=== PATIENT | female | born 1960 | race Caucasian/White ===

== ENCOUNTER 2019-12-09 09:19 | Observation (INO) ==
[2019-12-09] MEDS ORDERED: ASPIRIN PO ONE (10:08)
[2019-12-09] MEDS ORDERED: NITROGLYCERIN TOP ONE (10:09)
[2019-12-09 10:23] LABS: BASO# 0.02 X1000 (0.0-0.2); BASO% 0.6 % (0.0-0.8); EOS# 0.05 X1000 (0.0-0.7); EOS% 1.5 % (0.0-10.0); HEMATOCRIT 40.6 % (37.0-47.0); HEMOGLOBIN 13.8 g/dL (12.0-16.0); LYMPH% 51.2 % (20.5-51.1); MCH 30.5 PG (27-31); MCV 89.8 FL (81-99); MONO# 0.39 X1000 (0.11-0.59); MONO% 11.7 % (1.7-9.3); MPV 10.3 FL (7.4-10.4); NEUT# 1.16 X1000 (1.4-6.5); PLT 150 X1000 (130-400); RBC 4.52 XMIL (4.2-5.4); WBC 3.32 X1000 (4.8-10.8)
[2019-12-09 10:29] LABS: INR 0.88
[2019-12-09 10:30] LABS: PTT 25.1 Seconds (22.3-41.8)
--- NOTE | 2019-12-09 10:35 | Diag Imaging Result Doc PS360 ---
EXAM: CHEST-2 VIEWS HISTORY: CP TECHNIQUE: Two views COMPARISON: 05/03/2016 FINDINGS: The lungs are well expanded. The heart is not enlarged. The vessels are not distended. There are no infiltrates. No pleural effusions. Mild scoliosis. IMPRESSION: No acute abnormality. Electronically signed by Rell Matthews 12/09/2019 10:33 AM
--- NOTE | 2019-12-09 11:07 | EKG Report ---
Test Performed on : 12/09/2019 09:24:50 AM Test Reason : cp/palpitations Blood Pressure : / mmHG Vent. Rate : 071 BPM Atrial Rate : 071 BPM P-R Int : 146 ms QRS Dur : 070 ms QT Int : 380 ms P-R-T Axes : 020 053 059 degrees QTc Int : 412 ms Normal sinus rhythm. Normal ECG No previous ECGs available Unconfirmed Result
[2019-12-09 11:27] LABS: BUN 13 mg/dL (8-22); CALCIUM 9.3 mg/dL (8.8-10.2); GLUCOSE 93 mg/dL (70-104); TCO2 26 mmol/L (25-35); TOTAL BILIRUBIN 0.35 mg/dL (0.20-1.00)
[2019-12-09 11:41] LABS: ALBUMIN 3.8 g/dL (3.5-5.0); CHLORIDE 96 mmol/L (98-107); CREATININE 0.7 mg/dL (0.5-0.9); ESTIMATED GFR > 60; POTASSIUM 4.4 mmol/L (3.5-5.1); SODIUM 136 mmol/L (136-145)
[2019-12-09 11:48] LABS: AGAP 14
[2019-12-09 11:49] LABS: ALB/GLOB RATIO 1.2; COSMO 272
[2019-12-09 11:51] LABS: CK PROFILE 138 U/L (24-173)
[2019-12-09 12:02] LABS: ALKALINE PHOSPHATASE 73 U/L (32-104); GOT 34 U/L (10-30); GPT 25 U/L (10-36)
--- NOTE | 2019-12-09 12:31 | PROVIDER DOCUMENTATION ---
This chart was entered by Columba Wong Scribe, acting as scribe for Scott Haas MD. HPI-Cardiac General - General Chief Complaint: Palpitations Stated Complaint: CHEST PAIN Time Seen by Provider: 12/09/19 09:57 Source: patient Allergies/Adverse Reactions: Patient Allergies Allergy/AdvReac Type Severity Reaction Status Date / Time No Known Allergies Allergy Verified 12/09/19 10:20 Home Medications: Home Medication List Medication Instructions Recorded Confirmed Last Taken Type Amlodipine Besylate 1 tab PO QHS 12/09/19 12/09/19 12/08/19 History Telmisartan 1 tab PO QAM 12/09/19 12/09/19 12/09/19 History - History of Present Illness-Cardiac Nature of Presenting Problem: Patient is a 59 y/o female presenting to the ED today c/o chest pain and palpitations. Patient reports onset of symptoms intermittently approximately 4 months ago with worsening since onset. 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 Patient states episodes last a few minutes then resolve with rest. Patient states palpitations are painful and that it "feels like her heart is exploding" out of her anterior chest wall. Patient reports she has seen a medicare nurse in the past and was diagnosed with mitral valve pro lapse. Patient denies diaphoresis, N/V, or radiation of pain. Patient denies all other signs/symptoms. Location: reports: central Quality of Pain: reports: other ("exploding") Onset/Duration: other (4 months) Timing: intermittent, getting worse Context/Activities at Onset: reports: moderate activity Modifying Factors: improves with: rest. worse with: exercise Palpitation Quality: fast/pounding heart beat History of arrythmia: reports: other (mitral valve prolapse) Nitro Today/Relief: reports: no nitro taken today Aspirin Treatment Today: reports: no aspirin today Prior Chest Pain/Cardiac Workup: reports: other (prior cardiology workup) Associated Symptoms: reports: shortness of breath. denies: diaphoresis, fever/chills, nausea, vomiting Similar Symptoms Previously?: No Recently Seen Here or By Another Healthcare Provider: No Review of Systems - Adult - REVIEW OF SYSTEMS - ADULT Constitutional: denies: chills, fever Eyes: reports: no symptoms reported Ears, Nose, Mouth & Throat: reports: no symptoms reported Cardiovascular: reports: chest pain, palpitations Respiratory: reports: shortness of breath. denies: cough Gastrointestinal: denies: abdominal pain, diarrhea, nausea, vomiting Genitourinary: reports: no symptoms reported Musculoskeletal: reports: no symptoms reported Integumentary: reports: no symptoms reported Neurological: reports: no symptoms reported Psychiatric: reports: no symptoms reported Endocrine: reports: no symptoms reported Hematologic/Lymphatic: reports: no symptoms reported Allergic/Immunologic: reports: no symptoms reported All Other Systems: Reviewed and Negative Past History - Adult - PAST MEDICAL HISTORY-ADULT Review of Records: reports: Old Records Reviewed, Nursing Assessment Review, Medications Reviewed, Social history reviewed & non-contributory. Major Childhood Illnesses: reports: denies history Cardiovascular: reports: heart valve problem (mitral valve prolapse) Respiratory: reports: denies history Gastrointestinal: reports: denies history Obstetrical/Gynecological: reports: denies history Genitourinary: reports: denies history Musculoskeletal: reports: denies history Neurological: reports: denies history Psychiatric: reports: denies history Endocrine/Immune: reports: denies history Other Conditions: reports: denies history Physical Exam-General - PHYSICAL EXAM-ADULT Initial Vital Signs Reviewed: Yes - CONSTITUTIONAL General Appearance: appears well, alert, no apparent distress - EYES Eyes: PERRL/EOMI, pink conjunctivae - HEAD, EARS, NOSE, MOUTH & THROAT HENMT: normocephalic/atraumatic, moist mucous membranes - NECK Neck: full range of motion, normal inspection - RESPIRATORY Respiratory: lungs clear, normal breath sounds, no respiratory distress, no accessory muscle use - CARDIOVASCULAR Cardiovascular: regular rate, rhythm, no edema - GASTROINTESTINAL (ABDOMEN) Abdominal Exam: non tender, soft - LYMPHATIC Lymphatic: no adenopathy - MUSCULOSKELETAL Back Exam: normal inspection Extremity: normal range of motion, normal gait, normal inspection - SKIN Integumentary: normal color, normal turgor, warm/dry - NEUROLOGIC Neurologic: grossly normal, no motor/sensory deficits - PSYCHIATRIC Psych/Mental Status: normal mood/affect, normal thought content, normal thought process - HEART Score HEART Score: History: Highly Suspicious HEART Score: ECG: Normal HEART Score: Age: 45-65 Years HEART Score: Risk Factors for Atherosclerotic Disease: 1 or 2 Risk Factors HEART Score: Troponin: < or = Normal Limit Total HEART Score:: 4 Progress - PLAN OF CARE/RESULTS Progress/Plan/Lab Results: Vital Signs - 8 hr 12/09/19 09:32 12/09/19 10:14 12/09/19 10:52 Temperature 98.2 F 97.9 F Pulse Rate 72 65 67 Respiratory Rate 18 16 17 Blood Pressure 119/80 145/90 137/89 O2 Sat by Pulse Oximetry 99 98 96 Laboratory Results - last 24 hr 12/09/19 12/09/19 12/09/19 10:10 10:10 10:10 WBC 3.32 L RBC 4.52 Hgb 13.8 Hct 40.6 MCV 89.8 MCH 30.5 MCHC 34.0 RDW Std Deviation 12.0 Plt Count 150 MPV 10.3 Immature Gran % (Auto) 0.0 Neut % (Auto) 35.0 L Lymph % (Auto) 51.2 H [place] % (Auto) 11.7 H Eos % (Auto) 1.5 Baso % (Auto) 0.6 Immature Gran # (Auto) 0.00 Neut # (Auto) 1.16 L Lymph # (Auto) 1.70 [place] # (Auto) 0.39 Eos # (Auto) 0.05 Baso # (Auto) 0.02 PT INR PTT (Actin FS) Sodium 136 Potassium 4.4 Chloride 96 L Carbon Dioxide 26 Anion Gap 14 BUN 13 Creatinine 0.7 Estimated GFR/1.73 m2 > 60 BUN/Creatinine Ratio 19 Glucose 93 Calculated Osmolality 272 Calcium 9.3 Total Bilirubin 0.35 AST 34 H ALT 25 Alkaline Phosphatase 73 Creatine Kinase 138 Troponin T High Sens Els-W-[id number] Pept 40 Total Protein 7.0 Albumin 3.8 Globulin 3.2 Albumin/Globulin Ratio 1.2 12/09/19 12/09/19 10:10 10:10 WBC RBC Hgb Hct MCV MCH MCHC RDW Std Deviation Plt Count MPV Immature Gran % (Auto) Neut % (Auto) Lymph % (Auto) [place] % (Auto) Eos % (Auto) Baso % (Auto) Immature Gran # (Auto) Neut # (Auto) Lymph # (Auto) [place] # (Auto) Eos # (Auto) Baso # (Auto) PT 12.0 INR 0.88 PTT (Actin FS) 25.1 Sodium Potassium Chloride Carbon Dioxide Anion Gap BUN Creatinine Estimated GFR/1.73 m2 BUN/Creatinine Ratio Glucose Calculated Osmolality Calcium Total Bilirubin AST ALT Alkaline Phosphatase Creatine Kinase Troponin T High Sens 8 Rso-Z-Vjvxvfcipbv Pept Total Protein Albumin Globulin Albumin/Globulin Ratio Orders Category Date Time Status Cardiac Monitoring DIRECTED Care 12/09/19 10:08 Active Nursing- Obtain EKG once Care 12/09/19 12:14 Active Oxygen Therapy- ED Nursing DIRECTED Care 12/09/19 10:08 Active Saline Loc NOW Care 12/09/19 10:08 Active CHEST-2 VIEWS [RAD] Stat Exams 12/09/19 10:08 Completed CBC WITH ELECTRONIC DIFF [HEME] Stat Lab 12/09/19 10:10 Completed CK PROFILE [SP CHEM] Stat Lab 12/09/19 10:10 Completed COMPREHENSIVE METABOLIC PANEL [CHEM] Stat Lab 12/09/19 10:10 Completed PRO B-NATRIURETIC PEPTIDE Stat Lab 12/09/19 10:10 Completed PROTIME WITH INR [COAG] Stat Lab 12/09/19 10:10 Completed PTT [COAG] Stat Lab 12/09/19 10:10 Completed TROPONIN T HIGH SENSITIVITY Stat Lab 12/09/19 10:10 Completed TROPONIN T HIGH SENSITIVITY Stat Lab 12/09/19 12:26 Ordered Aspirin Med 12/09/19 10:08 Discontinued 325 mg PO NOW ONE Nitroglycerin Med 12/09/19 10:09 Discontinued 0.5 inch TOP NOW ONE CP/SOB/Palp >45 yrs of Age Stat Oth 12/09/19 10:08 Ordered EKG [EKG] Stat Ther 12/09/19 10:08 Draft EKG [EKG] Stat Ther 12/09/19 12:14 Ordered Result Diagrams: 12/09/19 10:10 12/09/19 10:10 - EKG 1 Time of EKG reading by physician:: 09:40 EKG Read and Signed by:: Scott Haas EKG Interpretation (*Must complete 3 of following elements*): Normal Rate: 71 Rhythm: Normal sinus rhythm - XRAY 1 XRAY Study: Chest Impression: See EMR Report (EXAM: CHEST-2 VIEWS HISTORY: CP TECHNIQUE: Two views COMPARISON: 05/03/2016 FINDINGS: The lungs are well expanded. The heart is not enlarged. The vessels are not distended. There are no infiltrates. No pleural effusions. Mild scoliosis. IMPRESSION: No acute abnormality. Electronically signed by Rell Matthews 12/09/2019 10:33 AM 12/09/19 1033 Int erpreting Physician: Rell Matthews MD Dictated Date/Time: 12/09/19 1032 cc: Scott Haas MD; Jj Torrez MD) - CONSULTS/PCP/HOSPITALIST Notification #1 *Consult/PCP/Hospitalist*: Marilee paged [phone] #2 Consult: asmita Thibodeaux, paged [phone] Time Discussed: 12:31 Reason/Comments: Admit to [place] Consult Disposition: Will see in ED, Admit Departure - Departure Date of Disposition Decision: 12/09/19 Time of Disposition Decision: 12:31 DIAGNOSIS: Unstable angina pectoris, Heart palpitations Disposition: ADMITTED INPATIENT 09 Certified Medical Emergency: Emergent Condition: Fair Referrals and Follow-Ups: Jj Torrez MD [Primary Care Provider] - - Critical Care Note This patient required my direct & personal management of CC.: No Attestation - Physician/ FRANCO Attestation Patient care was provided by Advanced Practice Provider:: No The physician spent face to face time with patient:: Yes Advanced Practice Provider documentation review:: Supervising physician onsite and consulted in the evaluation and care of this patient. The physician did have a face to face encounter with the patient. This chart was documented by the indicated scribe, (Columba Wong, Charlene) and accurately reflects the services I performed and decisions made by me, Scott Haas MD, as attested by the provider's signature.
--- NOTE | 2019-12-09 13:02 | ED EKG INTERP ---
EKG Interpretation - EKG Time of EKG reading by physician:: 13:02 EKG Read and Signed by:: Scott Haas EKG Interpretation (*Must complete 3 of following elements*): Abnormal Rate: 65 Rhythm: NSR [place]: normal QRS: poor R wave progression, other (left atrial enlargement) ST Wave: non-specific ST changes Prior EKG Comparison: unchanged from prior Attestation - Physician/ FRANCO Attestation Patient care was provided by Advanced Practice Provider:: No The physician spent face to face time with patient:: Yes Advanced Practice Provider documentation review:: Supervising physician onsite and consulted in the evaluation and care of this patient. The physician did have a face to face encounter with the patient.
--- NOTE | 2019-12-09 13:02 | EKG Report ---
Test Performed on : 12/09/2019 1:00:52 PM Test Reason : this is a repeat Blood Pressure : / mmHG Vent. Rate : 065 BPM Atrial Rate : 065 BPM P-R Int : 186 ms QRS Dur : 080 ms QT Int : 396 ms P-R-T Axes : 054 049 048 degrees QTc Int : 411 ms Normal sinus rhythm. Possible Left atrial enlargement Borderline ECG When compared with ECG of 09-DEC-2019 09:24, (Unconfirmed) No significant change was found Unconfirmed Result
[2019-12-09] MEDS ORDERED: NITROGLYCERIN SL PRN (13:44)
[2019-12-09] MEDS ORDERED: TYLENOL PO PRN (13:44)
[2019-12-09] MEDS ORDERED: ZOFRAN IV PRN (13:44)
--- NOTE | 2019-12-09 15:46 | ECHO REPORT ---
ORDER DATE: 12/09/2019 INTERPRETING PHYSICIAN: Dr. Garrett Earl ECHOCARDIOGRAPHIC MEASUREMENTS: 1. Interventricular septum: 0.5 cm. 2. Left ventricular posterior wall: 0.6 cm. 3. Diastolic diameter: 4.1 cm. 4. Left atrium: 2.7 cm. 5. Aortic root: 2.5 cm. SUMMARY OF THE 2-DIMENSIONAL IMAGIN. Aortic valve leaflets are trileaflet. 2. Pulmonic valve was normal. 3. Tricuspid valve was normal. 4. Mitral valve was normal. 5. Normal left ventricular cavity size. Estimated ejection fraction of 65%. 6. There is mild mitral regurgitation. 7. Mild tricuspid regurgitation. Peak velocity across the tricuspid valve less than 2 m/sec. 8. Peak velocity across the aortic valve less than 2 m/sec. There is no aortic stenosis or regurgitation. 9. Peak velocity across the tricuspid valve was 2 m/sec. 10. There is no pericardial effusion. 11. No obvious intracardiac mass or thrombus seen. 12. There is grade 1 diastolic dysfunction. cc: Garrett Earl MD
--- NOTE | 2019-12-09 19:09 | HISTORY AND PHYSICAL ---
PRIMARY CARE PROVIDER: Dr. Torrez. MAP MAKER: Dr. Hunt. CHIEF COMPLAINT: Chest pain and palpitations. HISTORY OF PRESENT ILLNESS: Ms. Martel is a 59-year-old female who carries a past medical history of hypertension, possibly mitral valve prolapse, who reports off and on for the last few months she has had some episodes of feeling like some fluid moving in her heart and feeling a bee sting and then it is gone. Sometimes it is associated with belching. She has noticed this at rest and as well with exertion. She has noticed over the past week or so after she has had an upper respiratory infection that it has exacerbated. 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 She has to stop and catch her breath. She is a very active person. She goes hiking, has done so for about 5 years. She goes to the gym 3 to 4 times a week. She does the step mill as well as other things at the gym. She will notice that her heart rate gets up, but then she just thought that was normal. Again, she was worried because of the exacerbation with her recently being sick. Workup in the ED has showed 2- troponins. Her initial EKG just shows a normal sinus rhythm. We will consult her instructor decorating, Dr. Hunt. We sent her for an echocardiogram. We will make her n.p.o. after midnight and do a stress test in the a.m. PAST MEDICAL HISTORY: Per HPI. PAST SURGICAL HISTORY: , partial hysterectomy. SOCIAL HISTORY: She is . She has children. She lives a very active lifestyle. 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 No alcohol, tobacco, or illicit drug use. FAMILY HISTORY: Mother does have a fast heart rate condition. She does not know the name of it, but she does have to take medications for it. Father had some type of cancer that was cured. He also has Alzheimer's. ALLERGIES: No known drug allergies. MEDICATIONS: Home medications are being compiled. PHYSICAL EXAMINATION: VITAL SIGNS: Temperature is 97.8 degrees, heart rate at 96, respirations 18, blood pressure 127/76, O2 is 96% on room air. GENERAL: Ms. Martel is a pleasant 59-year-old female who is lying in the bed in no acute distress. HEENT: Atraumatic, normocephalic. PERRL. NECK: Supple. Trachea midline. CARDIOVASCULAR: S1, S2 appreciated. No murmurs, gallops, rubs noted. RESPIRATORY: Lung sounds clear bilaterally. GI: Is soft, nontender, nondistended. Positive bowel sounds 4 quads. EXTREMITIES: Lower extremities negative for edema. NEUROLOGIC: No focal deficits noted. DIAGNOSTIC DATA: Initial EKG normal sinus rhythm at 71 beats per minute. Chest x-ray: No acute abnormality. Echocardiogram is pending. PERTINENT LABORATORY DATA: Two sets of troponins have been negative at 8 and 6. ASSESSMENT AND PLAN: 1. Atypical chest pain. Two sets of cardiac enzymes have been negative. She has undergone an echocardiogram. We will set her up for a stress test in the a.m., consult her instructor decorating, do a follow-up electrocardiogram in the a.m., continue with full-dose aspirin. She just recently had a lipid profile done with hospital screening. 2. Hypertension. We will continue on home medications when reconciled. 3. Further recommendations to follow physician evaluation, laboratory and diagnostic data. Dictated by RADHA Blair for Lissy Barr MD cc: MD Delmar Harman MD MTDD
[2019-12-09] MEDS ORDERED: NORVASC PO SCH (21:00)
[2019-12-09] MEDS ORDERED: AMLODIPINE BESYLATE PO SCH (21:00)
[2019-12-10] MEDS ORDERED: PRILOSEC PO SCH (07:00)
--- NOTE | 2019-12-10 07:40 | EKG Report ---
Test Performed on : 12/10/2019 07:27:28 AM Test Reason : CP Blood Pressure : / mmHG Vent. Rate : 063 BPM Atrial Rate : 063 BPM P-R Int : 180 ms QRS Dur : 078 ms QT Int : 394 ms P-R-T Axes : 002 043 042 degrees QTc Int : 403 ms Normal sinus rhythm. Normal ECG When compared with ECG of 09-DEC-2019 13:00, (Unconfirmed) No significant change was found Confirmed by Omero Martel MD ([id number]) on 12/10/2019 8:11:28 AM
[2019-12-10 08:49] LABS: AGAP 10; BUN 15 mg/dL (8-22); CALCIUM 8.9 mg/dL (8.8-10.2); CHLORIDE 100 mmol/L (98-107); CHOLESTEROL 151 mg/dL (0-200); COSMO 276; CREATININE 0.8 mg/dL (0.5-0.9); ESTIMATED GFR > 60; GLUCOSE 97 mg/dL (70-104); HDL 43 mg/dL (45-65); LDL 85 mg/dL; POTASSIUM 4.4 mmol/L (3.5-5.1); SODIUM 138 mmol/L (136-145); TCO2 28 mmol/L (25-35); TRIGLYCERIDES 117 mg/dL (35-135); VLDL 23 mg/dL
[2019-12-10 08:50] LABS: BASO# 0.03 X1000 (0.0-0.2); EOS# 0.06 X1000 (0.0-0.7); EOS% 1.9 % (0.0-10.0); HEMATOCRIT 41.2 % (37.0-47.0); LYMPH# 1.49 X1000 (1.2-3.4); LYMPH% 48.1 % (20.5-51.1); MCH 30.9 PG (27-31); MCV 90.9 FL (81-99); MONO# 0.32 X1000 (0.11-0.59); MONO% 10.3 % (1.7-9.3); MPV 10.3 FL (7.4-10.4); NEUT% 38.7 % (42.2-75.2); PLT 179 X1000 (130-400); RBC 4.53 XMIL (4.2-5.4); RDW 12.1 % (11.5-14.5)
[2019-12-10] MEDS ORDERED: MICARDIS PO SCH ×2 (09:00)
[2019-12-10] MEDS ORDERED: ASPIRIN PO SCH ×2 (09:00)
--- NOTE | 2019-12-10 15:39 | Diag Imaging Result Document ---
PROCEDURE NAME: MYOCARDIAL PERF SCAN, STR/REST - 12/10/2019 SUMMARY: The patient was administered 10.5 mCi of technetium-99m sestamibi, after which resting cardiac images were obtained. The patient was subsequently exercised on a treadmill according to a Daniel protocol and exercised for a total of 8 minutes, achieving a maximum workload of stage III and 10.1 METS. With exercise, the heart rate increased from 68 beats per minute to 148 beats per minute, representing 92% of maximal age predicted heart rate. The blood pressure increased from 147/75 to 152/85. With exercise, the patient denied chest discomfort. At peak exercise, the patient was administered 33.8 mCi of technetium 99-m sestamibi after which gated stress cardiac images were obtained. Baseline ECG demonstrated normal sinus rhythm and was within normal limits. With exercise, there were no diagnostic ST-segment changes. SPECT images were reconstructed in the short, horizontal long, and vertical long axis. Review of these images demonstrated homogeneous uptake of radiopharmaceutical on both stress and resting images. Gated images demonstrate a calculated left ventricular ejection fraction of 78% with symmetrical wall motion/thickening. CONCLUSIONS: 1. Good aerobic capacity. Target heart rate achieved. 2. Clinically negative for chest pain. 3. Electrocardiographically negative for exercise-induced myocardial ischemia. 4. Normal exercise sestamibi images. cc: MD Lissy Espinoza MD
[2019-12-10 16:07] VITALS: BP 134/78
[2019-12-10] MEDS ORDERED: MYLICON PO ONE (16:34)
--- NOTE | 2019-12-10 21:09 | CARDIOLOGY CONSULTATION ---
DATE: 12/10/2019 INDICATION: Chest pain, palpitations. HISTORY OF PRESENT ILLNESS: Ms. Martel is a 59-year-old, white female, with a history of hypertension, who presented for evaluation of chest pain and shortness of breath. She has noted over the last couple of weeks or so, that she would be increasingly short of breath on her workouts as well as hiking. In addition, at times she would have some heaviness in her chest that she would notice particularly when she was pushing things. She is very at active. 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 She works out with weights. She has not had any significant cardiac history. PAST MEDICAL HISTORY: Significant for hypertension. SOCIAL HISTORY: She is . No current tobacco use. FAMILY HISTORY: Significant for mother has some sort of fast heart rate that she does not know the exact name for. Father had some type of cancer as well as Alzheimer's. REVIEW OF SYSTEMS: A 10-system review of systems is negative, except for those things mentioned in HPI. PHYSICAL EXAMINATION: Afebrile. Heart rate 71, blood pressure 134/78.General: She is in no acute distress. HEENT: Oropharynx is moist. Normal dentition. Eye examination, pink conjunctivae, white sclerae. Neck: No obvious thyromegaly or thyroid tenderness. Cardiovascular: She sounds to be in a regular rate and rhythm. She has no obvious murmurs. She has no S3. She has no lower extremity edema. Chest: Clear bilaterally. She has no increased work of breathing. Abdomen: Soft, nontender, nondistended. She has no obvious organomegaly. Skin: Warm and dry throughout without any rashes. Neurological: Moving all extremities well. She has no lateralizing deficits. PERTINENT DATA: Her echo was unremarkable with an ejection fraction of 65%. She had a nuclear scan that was normal as well, showing normal perfusion and an ejection fraction of 78%. Her lab data demonstrates a white count of 3.1, hematocrit 41, platelet count is 179,000. Her sodium is 138, potassium is 4.4, BUN 15, creatinine 0.8. Cardiac enzymes are negative. Her LDL is 85. ASSESSMENT: Ms. Martel is a 59-year-old female who presented with atypical chest discomfort and predominantly shortness of breath. She had a normal nuclear scan. PLAN: Her EKG on presentation was unremarkable. Her echocardiogram was unremarkable. Her laboratory tests have been unremarkable and the remainder of her EKGs here in the hospital have not shown any ischemia. From my standpoint, she can be discharged. We will plan on arranging for an outpatient TIMBO to evaluate her palpitations. Otherwise, please contact us if we can be of further assistance. cc: Miky Capellan MD
--- NOTE | 2019-12-11 15:53 | DISCHARGE SUMMARY ---
ADMISSION DATE: 12/09/2019 DISCHARGE DATE: 12/10/2019 DISCHARGE DISPOSITION: Home. DISCHARGE CONDITION: Hemodynamically stable. Her echocardiogram, stress test have been negative. DISCHARGE DIAGNOSIS: Atypical chest discomfort. 2. Essential hypertension. OTHER DIAGNOSIS: History of essential hypertension. DISCHARGE MEDICATIONS: Amlodipine 2.5 mg at nighttime, telmisartan 40 mg in the morning time. VITALS: At time of discharge temperature 97.7 degrees, pulse 71, respiratory 18, blood pressure 134/78, saturating 94% room air. PHYSICAL EXAMINATION: Not in acute distress. Oral cavity is moist. Lungs: Air entry bilaterally equal. No wheeze or crackles. S1 normal. No murmur, gallop, or rub. Abdomen: Soft, nontender. Extremity: No lower extremity edema. She is alert and oriented x3. is at bedside. LABS: At time of discharge WBC 3.1, hemoglobin 14, platelet 179,000, BUN 15, creatinine 0.8. Microbiology, no data. SIGNIFICANT IMAGING AT THE TIME OF DISCHARGE: Chest x-ray on presentation had no acute abnormality. Echocardiogram had ejection fraction of 65% with mild tricuspid regurgitation and mild mitral regurgitation. Myocardial perfusion scanning had good aerobic capacity. It was negative for chest pain. There was no exercise induced myocardial ischemia. Normal exercise sestamibi images. Electrocardiogram on presentation had normal sinus rhythm. It was normal EKG. HOSPITAL COURSE SUMMARY: Ms. Martel is a 59-year-old female with past medical history of hypertension who comes in because of on and off episodes of feeling as if some fluid is moving in her heart and feeling a bee sting and then it was gone. Sometimes it was associated with belching. She has noticed that at rest and as well as with physical exertion. She had noticed that it started getting worse over the last one week. 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 She recently had a viral infection 7 days ago and her symptoms had started getting worse since then. In the emergency room. In the emergency room, her EKG had normal sinus rhythm and troponins were negative. Echocardiogram was performed and she underwent a stress test. Her echocardiogram and stress test were unremarkable. It was thought that her symptoms were noncardiac origin. She was advised to have follow up with her regular physician. At the time of discharge, detailed discharge instructions were provided to the patient. All of her questions were satisfactorily answered. 25 minutes were spent in preparing this discharge summary. cc: Moises Castañeda MD MTDSabino
== END 2019-12-10 18:18 | disposition home or self-care (01) ==
LOC: ED 09:19 → EDIPHOLD 09:19 → SUATTDRO 13:07 → 3N 15:53
PROVIDERS: ATTEND Internal Medicine